=== PATIENT | female | born 1975 | race Hispanic/Latino ===

== ENCOUNTER 2018-06-07 09:04 | Outpatient (CLI) | payer BC ==
--- NOTE | 2018-06-07 11:24 | Ultrasound Report ---
Right mammogram and right breast ultrasound: Standard imaging of the right breast as well as multiple compression views in the lateral projection demonstrates increased fibroglandular tissue in the retroareolar region. There is no clearly definable mass. The findings do not appear significantly different than seen on outside images in December 2017. Ultrasound of this area is unremarkable. Of note is a 7 mm circumscribed nodule in the medial breast seen only in the CC projection which I do not identify on prior exam. This has no ultrasound correlation. The findings are otherwise unremarkable. CAD used. Impression: Stable retroareolar findings. No suspicious changes identified. New probably benign right breast nodule. Recommendation: Repeat mammogram/ultrasound in 6 months to reevaluate right breast nodule. BI-RADS CATEGORY: 3 = Probably benign ACR BI-RADS MAMMOGRAPHIC CODES: 0 = Needs additional imaging evaluation; 1 = Negative; 2 = Benign; 3 = Probably benign; 4 = Suspicious; 5 = Malignant; 6 = Known biopsy-proven malignancy COMMENT: 1. Dense breast tissue, i.e., adenosis, fibrocystic changes, etc., may obscure an underlying neoplasm. 2. Approximately 10% of cancers are not detected with mammography. 3. A negative mammography report should not delay biopsy if a clinically suspicious mass is present.
== END 2018-06-07 09:05 | disposition home or self-care (01) ==
LOC: SPVWC 09:04
PROVIDERS: ATTEND Surgery
DX: R92.8 Other abnormal and inconclusive findings on diagnostic imaging of breast (principal)

== ENCOUNTER 2018-12-13 12:38 | Outpatient (CLI) | payer BC ==
--- NOTE | 2018-12-13 14:27 | Ultrasound Report ---
RIGHT BREAST ULTRASOUND: 12/13/18 12:38:00 CLINICAL: Right mammographic asymmetries. An inner asymmetry has enlarged since 06/07/18. COMPARISON: 11/11/18 and 06/07/18 mammograms and 06/07/18 right breast ultrasound. FINDINGS: Ultrasound of the right breast(including all four quadrants and the retroareolar area) was performed and demonstrated an oval slightly irregular heterogeneous hypoechoic mass at 1 o'clock 8 cm from the nipple. It measures 5 x 6 x 3 mm and correlates with the mammographic density. In addition, an oval slightly irregular heterogeneous predominantly hyperechoic mass at 8 o'clock 8 cm from the nipple measures 1.6 x 1.2 x 0.8 cm. It correlates with the more posterior and inferior outer asymmetry on the recent mammogram. The patient also described lumpiness in the upper-outer quadrant of the right breast and ultrasound in this area demonstrated an island of fibroglandular structures with no mass, cyst or shadowing. This correlates with palpable markers on the recent mammogram. IMPRESSION: A suspicious 6 mm right breast mass at 1 o'clock 8 cm from the nipple and a a benign 1.6 cm mass at 8 o'clock 8 cm from the nipple. This represents either an island of normal fibroglandular structures or a benign hamartoma. RECOMMENDATION: Ultrasound guided needle biopsy of the right breast at 1 o'clock 8 cm from the nipple. I discussed the findings and the recommendation for needle core biopsy with the patient at the time of the examination. BI-RADS 4--Suspicious
== END 2018-12-13 12:39 | disposition home or self-care (01) ==
LOC: SPVWC 12:38
PROVIDERS: ATTEND Surgery
DX: R92.8 Other abnormal and inconclusive findings on diagnostic imaging of breast (principal)

== ENCOUNTER 2018-12-20 09:18 | Outpatient (CLI) | payer BC ==
--- NOTE | 2018-12-20 11:30 | Mammography Report ---
RIGHT DIGITAL DIAGNOSTIC MAMMOGRAM: 12/20/18 09:18:00 CLINICAL: For clip placement immediately status post ultrasound biopsy. COMPARISON:11/11/18 FINDINGS: A biopsy clip is now identified in the upper inner breast and the previously described mass is no longer identified. IMPRESSION: Concordant clip placement status post ultrasound biopsy. BI-RADS CATEGORY: 4--Suspicious Pathology pending.
--- NOTE | 2018-12-20 14:13 | Ultrasound Report ---
VACUUM ASSISTED ULTRASOUND GUIDED NEEDLE CORE BIOPSY WITH CLIP PLACEMENT RIGHT: 12/20/18 09:18:00 CLINICAL: Right breast mass at 1 o'clock 8 cm from the nipple. COMPARISON :12/13/18 FINDINGS: The procedure was explained to the patient and informed consent was obtained. Ultrasound demonstrated the previously described irregular hypoechoic mass at 1 o'clock. The skin was prepped with Betadine and anesthetized with 1% lidocaine. Vacuum-assisted needle core biopsy was performed through a small dermatotomy using ultrasound guidance, 2% lidocaine with epinephrine for deep anesthesia and a 10-gauge Mammotome Elite biopsy probe. Multiple cores were obtained and placed in formalin. The lesion completely disappeared and a hydro-brady clip was deployed at the biopsy site. Hemostasis was achieved with minimal pressure and a sterile dressing was applied. The patient tolerated the procedure well and there were no apparent complications. A two view mammogram demonstrated concordant clip placement. The patient left the department in good condition with instructions for wound care and follow up. IMPRESSION: Uncomplicated vacuum-assisted ultrasound core biopsy and clip placement right breast.
== END 2018-12-20 09:19 | disposition home or self-care (01) ==
LOC: SPVWC 09:18
PROVIDERS: ATTEND Surgery
DX: N60.11 Diffuse cystic mastopathy of right breast (principal); N63.12 Unspecified lump in the right breast, upper inner quadrant; R92.0 Mammographic microcalcification found on diagnostic imaging of breast
CPT/HCPCS: 88305

== ENCOUNTER 2019-05-29 11:38 | Outpatient (CLI) | payer BC ==
--- NOTE | 2019-05-29 15:39 | Ultrasound Report ---
COMPLETE RIGHT BREAST ULTRASOUND HISTORY: Right palpable breast lump at 11:00 and a benign right breast biopsy at 1:00. Her last mammo gram demonstrated a mass at 12:00 approximately 15 cm from the nipple. COMPARISON: 05/25/2019 FINDINGS: Complete sonographic evaluation including imaging of the four quadrants and subareolar aspe ct of the right breast demonstrates no mass or suspicious shadowing. A benign cyst at 10:00 10 cm f rom the nipple measures 5 mm. Isolated fibroglandular structures at 11:00 8 cm from the nipple correl ates with the palpable lump and this appears to correlate with the mammographic finding at 12:00 15 c m from the nipple. The differences and distances can be explained by stretching of the breast on the mammogram and flattening of the breast on the ultrasound. IMPRESSION Benign breast tissue at 11:00 8 cm from the nipple which correlates with the palpable lump. No suspic ious finding. Recommend routine mammographic screening. BIRADS 2: Benign Signer Name: Alexis Thomas MD Signed: 05/29/2019 3:35 PM Workstation Name: [id number]
== END 2019-05-29 11:39 | disposition home or self-care (01) ==
LOC: SPVWC 11:38
PROVIDERS: ATTEND Surgery
DX: R92.8 Other abnormal and inconclusive findings on diagnostic imaging of breast (principal)

== ENCOUNTER 2020-11-18 09:29 | Outpatient (CLI) | payer BC ==
--- NOTE | 2020-11-18 13:01 | Mammography Report ---
DIGITAL SCREENING MAMMOGRAM WITH TOMOSYNTHESIS WITH CAD, 11/18/2020 CLINICAL INFORMATION / INDICATION: Routine Screening Mammography. TECHNIQUE: Digital bilateral 2D and 3D mammography with tomosynthesis was obtained in the craniocaud al and mediolateral oblique projections. Computer-Aided Detection (CAD) analysis was used for interp retation of this study. COMPARISON: 11/16/2019, 11/11/2018, 06/07/2018 FINDINGS: Breast Density: There are scattered areas of fibroglandular density. No dominant mass, suspicious calcifications, or architectural distortion in the left breast. In the 11-12:00 position of the right breast, posterior depth, there is a overall benign-appearing ma ss present which has been worked up on prior mammograms. However, it continues to show interval enlar gement every year. In my opinion, it does not meet criteria for the diagnosis of hamartoma given on p rior mammogram on today's mammogram it measures 5.2 cm in greatest diameter. Biopsy clip is again noted in the right breast 2-3:00 position unchanged. No other significant interval change in the remainder of the mammogram. IMPRESSION: Continued interval increase in size of 5 cm mass in the right breast, 11-12:00, posterior depth. Given the continued interval enlargement, I would recommend percutaneous biopsy, if sonograph ic correlate can be confidently identified. The mass is more than likely too posterior for stereotact ic biopsy. Follow up recommendation: Biopsy BI-RADS Category 4: Suspicious of malignancy. A "normal" or negative report should not discourage follow up or biopsy of a clinically significant f inding. A written summary of these findings will be mailed to the patient. The patient will be entered into a mammography reporting system which will generate a reminder letter for the patient's next appointmen t at the appropriate interval. The [employer] recommends yearly mammograms starting at age 40 and continuing as l iona as a woman is in good health. Breast MRI is recommended for women with an approximate 20-25% or greater lifetime risk of breast cancer, including women with a strong family history of breast or ova dominique cancer or who have been treated for Hodgkin's disease. Signer Name: Kira Hickman MD Signed: 11/18/2020 12:57 PM Workstation Name: [id number]
== END 2020-11-18 09:30 | disposition home or self-care (01) ==
LOC: SPVWC 09:29
PROVIDERS: ATTEND Surgery
DX: Z12.31 Encounter for screening mammogram for malignant neoplasm of breast (principal)
CPT/HCPCS: 77063; 77067

== ENCOUNTER 2020-12-11 10:05 | Outpatient (CLI) | payer BC ==
--- NOTE | 2020-12-11 13:17 | Mammography Report ---
RIGHT DIAGNOSTIC MAMMOGRAM INDICATION: Right breast 11:00 biopsy lesion. COMPARISON: 11/18/2020. FINDINGS: Right breast CC, XCCL, and LM projection mammograms were obtained. These demonstrate accur ate placement of a U-shaped biopsy marker within a previously identified mass. IMPRESSION: Right breast mammograms documenting accurate location of U shaped biopsy marker in previously identif ied right breast 11:00 mass. BI-RADS Category 4: Suspicious for Malignancy. Signer Name: Justus Guzman MD Signed: 12/11/2020 1:12 PM Workstation Name: [id number]
--- NOTE | 2020-12-13 07:39 | Ultrasound Report ---
ULTRASOUND-GUIDED CORE NEEDLE BIOPSY Right BREAST WITH CLIP PLACEMENT INDICATION: Enlarging right breast lesion at the 11:00 position. FINDINGS: Informed consent was obtained. The lesion within the right breast at the 11:00 position, 8 cm from th e nipple, was identified with ultrasound. The overlying skin was cleansed with chloro prep and local anesthesia was obtained with a 1% lidocaine solution. Under ultrasound guidance a 14-gauge [address] core biopsy needle was advanced to the lesion. A total of 4 core samples were obtained. A U-shape d biopsy marker was placed to brady the site of the biopsy. Specimen samples were placed in formalin a nd sent to pathology for analysis. Patient tolerated the procedure well and no immediate complications were identified. IMPRESSION: Technically successful ultrasound-guided core biopsy of right breast lesion at the 11:00 position wit h accurate placement of a U-shaped biopsy marker. An addendum will be added to this report once pathology results are available. Signer Name: Justus Guzman MD Signed: 12/11/2020 1:10 PM Workstation Name: [id number]
== END 2020-12-11 10:06 | disposition home or self-care (01) ==
LOC: SPVWC 10:05
PROVIDERS: ATTEND Surgery
DX: N63.11 Unspecified lump in the right breast, upper outer quadrant (principal); R92.8 Other abnormal and inconclusive findings on diagnostic imaging of breast; N64.89 Other specified disorders of breast
CPT/HCPCS: 88305

== ENCOUNTER 2021-03-17 07:02 | Day surgery (SDC) | payer BC ==
[2021-03-14 10:18] LABS: Hematocrit 36.7 % (30.3-42.9); Hemoglobin 12.6 gm/dl (10.1-14.3); Mean Corpuscular HGB Conc 35 % (30-34); Mean Corpuscular Volume 99 fl (79-97); Platelet Count 243 K/mm3 (140-440); Red Cell Distribution Width 12.8 % (13.2-15.2)
[~2021-03-17 07:02] MED LIST: ACETAMINOPHEN 500 MG TAB PO SCH; CELECOXIB 200 MG CAP PO NR; GABAPENTIN 300 MG CAP PO NR; LACTATED RINGERS 1,000 ML IV SCH; ceFAZolin/STERILE WATER 2 GM/20 ML SYRINGE IV NR
[2021-03-17] MEDS ORDERED: KETOROLAC 30 MG/1 ML INJ ONE (07:25)
[2021-03-17] MEDS ORDERED: ONDANSETRON 4 MG/2 ML INJ ONE (07:25)
[2021-03-17] MEDS ORDERED: dexAMETHasone 20 MG/5 ML VIAL ONE (07:25)
[2021-03-17] MEDS ORDERED: LIDOCAINE MPF (2%) 20 MG/1 ML VIAL 5 ML ONE (07:25)
[2021-03-17] MEDS ORDERED: BUPIVACAINE/PF (0.25%) 2.5 MG/ML 30 ML VIAL INFILTRATI ONE ×3 (07:35→11:18)
[2021-03-17] MEDS ORDERED: LIDOCAINE (1%) 10 MG/1 ML VIAL 20 ML MDV ONE ×3 (07:35→11:14)
[2021-03-17] MEDS ORDERED: HYDROmorphone 1 MG/1 ML INJ IV PRN (07:41)
[2021-03-17] MEDS ORDERED: ONDANSETRON 4 MG/2 ML INJ IV PRN (07:41)
[2021-03-17] MEDS ORDERED: oxyCODONE /ACETAMINOPHEN 5-325MG TAB PO PRN (07:41)
--- NOTE | 2021-03-17 07:41 | Anesthesia Consultation ---
Anesthesia Consult and Med Hx Date of service: 03/17/21 - Airway Anesthetic Teeth Evaluation: Good ROM Head & Neck: Adequate Mental/Hyoid Distance: Adequate Mallampati Class: Class I Intubation Access Assessment: Good - Pre-Operative Health Status ASA Pre-Surgery Classification: ASA1 Proposed Anesthetic Plan: General - Pulmonary Hx Smoking: No Hx Respiratory Symptoms: No - Cardiovascular System Hx Hypertension: No Hx Heart Attack/AMI: No Hx Percutaneous Transluminal Coronary Angioplasty (PTCA): No - Central Nervous System CVA: No - Gastrointestinal Hx Gastroesophageal Reflux Disease: Yes (took pantoprazole this morning) - Endocrine Hx Renal Disease: No Hx Liver Disease: No Hx Insulin Dependent Diabetes: No Hx Non-Insulin Dependent Diabetes: No Hx Thyroid Disease: No - Other Systems Hx Obesity: No - Additional Comments Anesthesia Medical History Comments: No hx anesthetic complications.
--- NOTE | 2021-03-17 07:41 | Anesthesia Day of Surgery ---
Anesthesia Day of Surgery - Day of Surgery Patient Examined: Yes Patient H&P Reviewed: Yes Patient is NPO: Yes
[2021-03-17] MEDS ORDERED: SCOPOLAMINE TRANSDERMAL PATCH 72 HR TD NR (08:00)
[2021-03-17] MEDS: MIDAZOLAM 2 MG/2 ML INJ IV NR ×2 (09:15→09:50)
[2021-03-17] MEDS ORDERED: fentaNYL 100 MCG/2 ML INJ ONE (10:07)
[2021-03-17] MEDS ORDERED: propofoL 200 MG/20 ML VIAL IV ONE (10:07)
[2021-03-17] MEDS ORDERED: ePHEDrine SULFATE 50 MG/1 ML INJ ONE (10:53)
[2021-03-17] MEDS ORDERED: WATER FOR IRRIG STERILE 1,500 ML BOTTLE IR ONE (10:56)
[2021-03-17] MEDS ORDERED: LIDOCAINE (1%) 10 MG/1 ML VIAL 20 ML MDV INFILTRATI ONE (11:17)
[2021-03-17] MEDS ORDERED: BACITRACIN ZINC OINT 28.4 GM TP ONE ×2 (11:37→11:38)
--- NOTE | 2021-03-17 11:58 | Short Stay Summary ---
Short Stay Documentation Date of service: 03/17/21 - History H&P: obtained from office - Allergies and Medications Current Medications: Allergies promethazine [From Phenergan] Adverse Reaction (Verified 03/17/21 09:23) Unknown PT STATES SEVERE SHIVERING Home Medications Medication Instructions Recorded Confirmed Last Taken Type Pantoprazole [Protonix] 40 mg PO BID 03/07/21 03/17/21 03/17/21 05:30 History Ibuprofen [Motrin 800 MG tab] 800 mg PO Q8HR PRN #12 tablet 03/17/21 Unknown Rx Active Medications Acetaminophen (Acetaminophen 500 Mg Tab) 1,000 mg PO PREOP JENNA Stop: 03/17/21 21:00 Last Admin: 03/17/21 09:00 Dose: 1,000 mg Documented by: Cefazolin Sodium (Cefazolin/Sterile Water 2 Gm/20 Ml Syringe) 2 gm IV PREOP NR Stop: 03/17/21 20:00 Celecoxib (Celecoxib 200 Mg Cap) 200 mg PO PREOP NR Stop: 03/17/21 21:00 Last Admin: 03/17/21 09:00 Dose: 200 mg Documented by: Gabapentin (Gabapentin 300 Mg Cap) 300 mg PO PREOP NR Stop: 03/17/21 21:00 Last Admin: 03/17/21 09:00 Dose: 300 mg Documented by: Hydromorphone HCl (Hydromorphone 1 Mg/1 Ml Inj) 0.5 mg IV Q10MIN PRN PRN Reason: Pain , Severe (7-10) Stop: 03/17/21 23:00 Lactated Ringer's (Lactated Ringers) 1,000 mls @ 100 mls/hr IV DIRECT JENNA Stop: 03/17/21 23:59 Last Admin: 03/17/21 09:15 Dose: 100 mls/hr Documented by: Midazolam HCl (Midazolam 2 Mg/2 Ml Inj) 2 mg IV PREOP NR Stop: 03/17/21 21:00 Last Admin: 03/17/21 09:50 Dose: 2 mg Documented by: Ondansetron HCl (Ondansetron 4 Mg/2 Ml Inj) 4 mg IV ONCE PRN PRN Reason: Nausea And Vomiting Stop: 03/17/21 18:00 Oxycodone/Acetaminophen (Oxycodone /Acetaminophen 5-325mg Tab) 1 tab PO ONCE PRN PRN Reason: Pain, Moderate (4-6) Stop: 03/17/21 18:00 Scopolamine (Scopolamine Transdermal Patch 72 Hr) 1 each TD PREOP NR Stop: 03/17/21 18:00 Last Admin: 03/17/21 09:00 Dose: 1 each Documented by: - Brief post op/procedure progress note Date of procedure: 03/17/21 Pre-op diagnosis: Right breast asymmetry of upper outer quadrant Post-op diagnosis: same Procedure: Right breast mass/asymmetry needle localization excisional biopsy Anesthesia: GETA Findings: Wire and clip present Surgeon: KRISTINA ECKERT Estimated blood loss: minimal Pathology: list Specimen disposition: to lab Condition: stable - Disposition Condition at discharge: Good Disposition: DC-01 TO HOME OR SELFCARE Short Stay Discharge Plan Activity: other (no heavy lifting) Diet: regular Wound: keep clean and dry (no heavy lifting; wear breast binder; apply bacitractin twice daily; may shower in 48 hours) Follow up with: KRISTINA ECKERT MD [Staff Physician] - 7 Days Prescriptions: Ibuprofen [Motrin 800 MG tab] 800 mg PO Q8HR PRN #12 tablet PRN Reason: Pain , Severe (7-10)
--- NOTE | 2021-03-17 12:07 | Operative Report ---
Operative Report Operative Report: Operative Report: March 17, 2021 Preoperative diagnosis: Right breast asymmetry/mass of the upper outer quadrant Postoperative diagnosis: Same Procedure: Right needle localization breast mass/asymmetry excisional biopsy of the upper outer quadrant Surgeon: Denise Thomas MD Test Data Developer: Kishore Kaplan MD Anesthesia: General Findings: Right wire and clip present within radiograph specimen Complications: None EBL: Minimal (less than 25 cc) Disposition: PACU in good condition Indications for operative procedure: This is a 45 year old lady with recent abnormal right screening and right diagnostic [place]. Biopsy performed of lesion-breast asymmetry/mass of the upper outer quadrant at the 12:00 position 12 cm FN with discordant pathology findings (benign breast tissue with no significant histopathological changes) and recommendations for excisional biopsy to rule out malignancy. Area of concern noted to have increased in size from most recent mammogram and radiologist concerns of malignancy. Prior breast biopsy at adjacent area with benign pathology. Patient wished to proceed with the above procedure. Procedure in detail: The patient was taken to radiology for wire placement for localization known area of concern around the 12:00 position 12 cm FN. Patient was then taken to the operating room. Gen. anesthesia was administered. Right breast and axilla were prepped and draped in the normal sterile operative fashion. The wire was identified of the lateral upper outer quadrant. Timeout was performed. Attention was then taken towards the right breast. Lateral breast incision was made around the 10:00 position with a 15 blade knife and dissection taken down to subcutaneous tissues. First began raising of the superior flap with removal of the wire from the skin with dissection take down posteriorly past the wire, followed by raising of the inferior flap, medial flap and lateral flap with all flaps taken down posteriorly past the wire. The breast area of concern was appropriately removed posteriorly with the aid of the Bovie cautery. The wire was not encountered. Specimen was marked and then sent to pathology and radiology; radiograph specimen with wire and clip present. Breast cavity was irrigated and hemostasis was obtained. Breast cavity was anesthesized with 1% lidocaine with quarter percent marcain. The posterior deep breast tissues were approximated and closed using interrupted 3-0 Vicryl. The subcutaneous tissues were approximated and closed using interrupted 3-0 Vicryl followed by closing of the skin with a running 4-0 Monocryl and skin affix. The patient tolerated surgery very well and she was awaken from anesthesia without any complication and transported to PACU in good condition.
[2021-03-17 12:46] VITALS: BP 99/43
--- NOTE | 2021-03-17 13:01 | Post Anesthesia Evaluation ---
- Post Anesthesia Evaluation Patient Participated: Yes Airway Patent: Yes Stable Respiratory Function: Yes Nausea/Vomiting: No Temp > 96.8F: Yes Pain Manageable: Yes Adequeate Hydration: Yes Anesthesia Complications: No
--- NOTE | 2021-03-17 14:01 | Mammography Report ---
MAMMOGRAPHY GUIDED WIRE LOCALIZATION OF THE RIGHT BREAST RIGHT BREAST SPECIMEN RADIOGRAPH, 03/17/2021 INDICATION: Localization of right breast target lesion: . COMPARISON: 12/11/2020 TECHNIQUE / FINDINGS: MAMMOGRAPHY GUIDED LOCALIZATION: Preliminary mammography of the breast demonstrated no significant in terval change compared to prior imaging. The anticipated needle entry site was marked, prepped and d raped in the usual sterile fashion. A timeout was performed confirming the patients name, date of bir th and the procedure to be performed. The skin was anesthetized with 1% lidocaine. A 20 gauge localiz ation needle was inserted through the right breast mass containing a U clip. A localization wire was then deployed through the needle, and the needle was removed. Appropriate positioning of the wire wa s confirmed. The patient tolerated the procedure well without immediate complication. The wire was secured to the skin with a sterile dressing. SPECIMEN RADIOGRAPH: The previously localized target lesion is present in its entirety in the submitt ed specimen. The localization wire is present. IMPRESSION: 1. Technically successful mammography guided breast wire localization. 2. Radiographic evidence of satisfactory excision of the right breast target lesion. Signer Name: Kenan Poon Jr, MD Signed: 03/17/2021 1:56 PM Workstation Name: [id number]
== END 2021-03-17 13:15 | disposition home or self-care (01) ==
LOC: OR 07:02
PROVIDERS: ATTEND Surgery
DX: N64.89 Other specified disorders of breast (principal); N63.11 Unspecified lump in the right breast, upper outer quadrant; Z20.822 Contact with and (suspected) exposure to COVID-19; G43.909 Migraine, unspecified, not intractable, without status migrainosus; K21.9 Gastro-esophageal reflux disease without esophagitis; Z90.49 Acquired absence of other specified parts of digestive tract; Z79.899 Other long term (current) drug therapy; Z87.440 Personal history of urinary (tract) infections; Z98.890 Other specified postprocedural states
CPT/HCPCS: 19125; 19281; 36415; 76098; 85027; 88307; A4648; J0690; J2250; J2704; J3010; J7120; U0003; J1100; J1885; J2405